=== PATIENT | male | born 1990 | race Caucasian/White ===

== ENCOUNTER 2016-12-30 06:51 | Emergency (ER) | payer SELFPAY ==
[2016-12-30 07:48] VITALS: BP 122/74
[2016-12-30] MEDS ORDERED: TORADOL IM ONE (07:58)
--- NOTE | 2016-12-30 07:59 | Emergency Department Report ---
ED Back Pain/Injury HPI - General Chief Complaint: Back Pain/Injury Stated Complaint: BACK PAIN Time Seen by Provider: 12/30/16 07:52 Source: patient Limitations: No Limitations - History of Present Illness Initial Comments: Patient complaining of low back injury from 10 foot fall approximately 5 years ago and has recurrent low back pain to this day. Patient never been seen for back pain. Patient denies incontinence, constipation, saddle paresthesia, extremity weakness or numbness. MD Complaint: back pain -: Gradual Similar Symptoms Previously: Yes Place: home Radiation: none Severity: moderate Severity scale (0 -10): 4 Quality: sharp, stabbing, aching Consistency: intermittent Worsens With: movement Context: while lifting, turning/twisting, bending Associated Symptoms: denies other symptoms. denies: incontinence, constipation , abdominal pain, nausea/vomiting - Related Data Previous Rx's Medication Instructions Recorded Last Taken Type Loperamide [Imodium] 2 mg PO Q2HR PRN #20 capsule 11/21/15 Unknown Rx Cyclobenzaprine [Flexeril] 10 mg PO TID PRN #20 tablet 12/30/16 Unknown Rx Ibuprofen [Motrin] 800 mg PO Q8HR PRN #20 tablet 12/30/16 Unknown Rx Allergies Allergy/AdvReac Type Severity Reaction Status Date / Time No Known Allergies Allergy Unverified 05/21/15 15:28 ED Review of Systems ROS: Stated complaint: BACK PAIN Other details as noted in HPI Constitutional: denies: chills, fever Eyes: denies: eye pain, eye discharge, vision change ENT: denies: ear pain, throat pain Respiratory: denies: cough, shortness of breath, wheezing Cardiovascular: denies: chest pain, palpitations Endocrine: no symptoms reported Gastrointestinal: denies: abdominal pain, nausea, diarrhea Genitourinary: denies: urgency, dysuria Musculoskeletal: back pain (low back pain when bending or lifting). denies: joint swelling, arthralgia Skin: denies: rash, lesions Neurological: denies: headache, weakness, paresthesias Psychiatric: denies: anxiety, depression Hematological/Lymphatic: denies: easy bleeding, easy bruising ED Past Medical Hx - Past Medical History Previous Medical History?: No - Surgical History Past Surgical History?: No - Social History Smoking Status: Current Every Day Smoker Substance Use Type: Alcohol - Medications Home Medications: Home Medications Medication Instructions Recorded Confirmed Last Taken Type Loperamide [Imodium] 2 mg PO Q2HR PRN #20 capsule 11/21/15 Unknown Rx Cyclobenzaprine [Flexeril] 10 mg PO TID PRN #20 tablet 12/30/16 Unknown Rx Ibuprofen [Motrin] 800 mg PO Q8HR PRN #20 tablet 12/30/16 Unknown Rx ED Physical Exam - General Limitations: No Limitations General appearance: alert, in no apparent distress - Head Head exam: Present: atraumatic, normocephalic - Eye Eye exam: Present: normal appearance, PERRL, EOMI - ENT ENT exam: Present: mucous membranes moist - Neck Neck exam: Present: normal inspection - Respiratory Respiratory exam: Present: normal lung sounds bilaterally. Absent: respiratory distress - Cardiovascular Cardiovascular Exam: Present: regular rate, normal rhythm. Absent: systolic murmur, diastolic murmur, rubs, gallop - GI/Abdominal GI/Abdominal exam: Present: soft, normal bowel sounds. Absent: distended, tenderness, guarding, rebound, rigid, mass, bruit, pulsatile mass - Rectal Rectal exam: Present: deferred - Extremities Exam Extremities exam: Present: normal inspection - Back Exam Back exam: Present: full ROM, tenderness, other (SI joint tenderness). Absent: CVA tenderness (R), CVA tenderness (L), muscle spasm, paraspinal tenderness, vertebral tenderness - Neurological Exam Neurological exam: Present: alert, oriented X3, CN II-XII intact, normal gait - Psychiatric Psychiatric exam: Present: normal affect, normal mood - Skin Skin exam: Present: warm, dry, intact, normal color. Absent: rash ED Course Vital Signs 12/30/16 07:44 Temperature 98.4 F Pulse Rate 66 Respiratory 18 Rate Blood Pressure 122/74 O2 Sat by Pulse 100 Oximetry Critical care attestation.: If time is entered above; I have spent that time in minutes in the direct care of this critically ill patient, excluding procedure time. ED Disposition Clinical Impression: Low back pain Disposition: DISCHARGED TO HOME OR SELFCARE Is pt being admited?: No Condition: Stable Instructions: Acute Low Back Pain (ED), Lumbar Radiculopathy (ED) Prescriptions: Cyclobenzaprine [Flexeril] 10 mg PO TID PRN #20 tablet PRN Reason: Muscle Spasm Ibuprofen [Motrin] 800 mg PO Q8HR PRN #20 tablet PRN Reason: Pain Referrals: CHACHO BRYAN MD [Staff Physician] - 3-5 Days
--- NOTE | 2016-12-30 08:54 | XRay Report ---
LUMBOSACRAL SPINE, 3 VIEWS: History: Back pain Findings: The vertebral bodies, disk spaces and posterior elements are intact. No compression deformity or malalignment. The SI joints are symmetric and unremarkable. Impression: 1. No evidence for acute injury to the lumbar spine.
== END 2016-12-30 09:31 | disposition home or self-care (01) ==
LOC: ED 06:51
DX: M54.5 Low back pain (principal); F17.200 Nicotine dependence, unspecified, uncomplicated; X50.0XXA Overexertion from strenuous movement or load, initial encounter; X50.3XXA Overexertion from repetitive movements, initial encounter; Y93.89 Activity, other specified; Y99.8 Other external cause status; Y92.89 Other specified places as the place of occurrence of the external cause
CPT/HCPCS: 72100; 96372; 99283; J1885